=== PATIENT | female | born 1990 ===

== ENCOUNTER 2022-06-26 09:22 | Day surgery (SDC) | payer OTHER ==
[~2022-06-26] VITALS: Ht 162.6 cm; Wt 64.9 kg
[2022-06-26] MEDS ORDERED: CILOXAN5 ML OTIC (15:59)
[2022-06-26] MEDS ORDERED: CEPHALEXIN500 MG PO (16:01)
== END 2022-06-26 19:35 | disposition home or self-care (01) ==
LOC: CIR.AMB 09:22
PROVIDERS: ATTEND Otolaryngology Otology & Neurotology
DX: H80.81 Other otosclerosis, right ear (principal); H90.11 Conductive hearing loss, unilateral, right ear, with unrestricted hearing on the contralateral side; Z88.1 Allergy status to other antibiotic agents; Z20.822 Contact with and (suspected) exposure to COVID-19